=== PATIENT | male | born 1980 | race Caucasian/White ===

== ENCOUNTER 2016-12-18 16:46 | Emergency (ER) | payer SELFPAY ==
[~2016-12-18] VITALS: Ht 170.2 cm; Wt 102.5 kg
[~2016-12-18 16:46] MED LIST: CLON0.1T PO; FURO40TA PO; LISI-515 PO; NEUR400C PO; SPIR25TA PO
[2016-12-18 17:14] VITALS: BP 129/82; PULSE 82; RESP 18; TEMP 98.6; O2SAT 100
[2016-12-18 19:54] LABS: POTASSIUM 4.3 MEQ/L (3.5-5.1)
[2016-12-18 19:58] LABS: BICARBONATE 29.6 MEQ/L (21.0-32.0)
[2016-12-18] MEDS ORDERED: SPIR25TA PO (20:09)
[2016-12-18] MEDS ORDERED: FURO40TA PO (20:09)
[2016-12-18] MEDS ORDERED: VIST50CA PO (20:09)
[2016-12-18] MEDS ORDERED: NEUR400C PO (20:09)
[2016-12-18] MEDS ORDERED: LISI-515 PO (20:09)
--- NOTE | 2016-12-18 20:10 | PD ---
HPI Chief Complaint: Medication Refill Request Time Seen by Provider: 17:00 Travel History International Travel<30 days: No Contact w/Intl Traveler<30days: No Traveled to known affect area: No History of Present Illness HPI Patient is a 36-year-old male who presents emergency Department for a medication refill. Patient has no new complaints today. He states that his patient assistance lapsed and he is unable to follow-up with his primary doctor. PFSH Past Medical History Hx Anticoagulant Therapy: No Anxiety: Yes Depression: Yes (SInce late teens early 20's) Heart Rhythm Problems: Yes (says he has had "skips" ) Cancer: No Cardiac Catheterization: No Cardiovascular Problems: Yes (HTN) High Cholesterol: Yes Chemotherapy: No Chest Pain: Yes Congestive Heart Failure: No Cirrhosis: Yes Cerebrovascular Accident: No Diabetes: No Diminished Hearing: No Endocrine: No Gastrointestinal Disorders: No GERD: Yes Genitourinary: No Hepatitis: No Hiatal Hernia: No Hypertension: Yes Immune Disorder: No Implanted Vascular Access Dvce: No Musculoskeletal: Yes (FX RIGHT FIBULA, HX FX T3-5) Neurologic: Yes (BLE NEUROPATHY, HX SEIZURES) Psychiatric: Yes (ANXIETY) Reproductive: No Respiratory: Yes Immunizations Current: Yes Migraines: Yes Seizures: Yes (see EMR) Thyroid Disease: No PNEUMOCCOCAL Vaccine (Year): 2 Past Surgical History Abdominal Surgery: No AICD: No Arteriovenous Shunt: No Body Medical Devices: NONE Cardiac Surgery: No Coronary Artery Bypass Graft: No Ear Surgery: No Endocrine Surgery: No Eye Surgery: No Genitourinary Surgery: No Hysterectomy: No Insulin Pump: No Joint Replacement: No Oral Surgery: Yes (T&A) Pacemaker: No Thoracic Surgery: No Tonsillectomy: Yes Other Surgery: Yes Family History Family Myocardial Infarction: Yes (GRAND FATHER AT 49) Social History Alcohol Use: No (quit) Tobacco Use: Yes (1 PPD) Substance Use: No Allergies-Medications (Allergen,Severity, Reaction): Coded Allergies: No Known Allergies (Verified , 12/18/16) Reported Meds & Prescriptions Reported Meds & Active Scripts Active Lisinopril 20 Mg Tab 20 Mg PO DAILY Neurontin (Gabapentin) 400 Mg Cap 400 Mg PO TID Spironolactone 25 Mg Tab 12.5 Mg PO DAILY Furosemide 40 Mg Tab 40 Mg PO DAILY Reported Clonidine (Clonidine HCl) 0.1 Mg Tab 0.1 Mg PO BID Review of Systems Except as stated in HPI: all other systems reviewed are Neg Physical Exam Narrative GENERAL: Well-nourished, well-developed patient. SKIN: Warm and dry. HEAD: Normocephalic. EYES: No scleral icterus. No injection or drainage. NECK: Supple, trachea midline. No JVD or lymphadenopathy. CARDIOVASCULAR: Regular rate and rhythm without murmurs, gallops, or rubs. RESPIRATORY: Breath sounds equal bilaterally. No accessory muscle use. GASTROINTESTINAL: Abdomen soft, non-tender, nondistended. MUSCULOSKELETAL: No cyanosis, or edema. BACK: Nontender without obvious deformity. No CVA tenderness. Data Data Last Documented VS Vital Signs Date Time Temp Pulse Resp B/P Pulse Ox O2 Delivery O2 Flow Rate FiO2 12/18/16 17:14 98.6 82 18 129/82 100 Orders Basic Metabolic Panel (Bmp) (12/18/16 19:21) Labs Laboratory Tests Test 12/18/16 19:30 Sodium Level 142 MEQ/L Potassium Level 4.3 MEQ/L Chloride Level 105 MEQ/L Carbon Dioxide Level 29.6 MEQ/L Anion Gap 7 MEQ/L Blood Urea Nitrogen 14 MG/DL Creatinine 0.95 MG/DL Estimat Glomerular Filtration 90 ML/MIN Rate Random Glucose 82 MG/DL Calcium Level 8.5 MG/DL [facility] Medical Decision Making Medical Screen Exam Complete: Yes Emergency Medical Condition: Yes Interpretation(s) Laboratory Tests Test 12/18/16 19:30 Sodium Level 142 MEQ/L Potassium Level 4.3 MEQ/L Chloride Level 105 MEQ/L Carbon Dioxide Level 29.6 MEQ/L Anion Gap 7 MEQ/L Blood Urea Nitrogen 14 MG/DL Creatinine 0.95 MG/DL Estimat Glomerular Filtration 90 ML/MIN Rate Random Glucose 82 MG/DL Calcium Level 8.5 MG/DL Vital Signs Date Time Temp Pulse Resp B/P Pulse Ox O2 Delivery O2 Flow Rate FiO2 12/18/16 17:14 98.6 82 18 129/82 100 Differential Diagnosis Medication refill versus acute kidney injury versus electrolyte abnormality versus uncontrolled hypertension versus other Narrative Course Patient is a 36-year-old male who presents emergency for medication refill. Patient has no new complaints at this time. Patient presented in October for the same reason. He is attempting to reestablish with Dr. Ram that he is waiting for his patient assistance. BMP ordered to assess kidney function. BMP is unremarkable, patient's medications will be refilled for him at this time. He is encouraged to continue attempting to follow-up with her primary care provider as emergency department is not the appropriate place for medication refills. He verbalized understanding of these instructions, he was encouraged to return to emergency department for any new or worsening symptoms. Patient is stable for discharge. Diagnosis Primary Impression: Encounter for medication refill Referrals: Hyun Ram MD Patient Instructions: General Instructions, Hypertension (DC) Additional Instructions: Follow-up with your primary doctor Medications as directed Return to emergency department for new or worsening symptoms Med/Other Pt SpecificInfo: Prescription(s) given Scripts Hydroxyzine Pamoate (Vistaril)50 Mg Cap50 Mg PO BID PRN (ANXIETY) #60 CAP Ref 0 Prov:Randa Dickerson 12/18/16 Lisinopril 20 Mg Tab20 Mg PO DAILY #30 TAB Ref 0 Prov:Randa Dickerson 12/18/16 Gabapentin (Neurontin)400 Mg Rws830 Mg PO TID #90 CAP Ref 0 Prov:Randa Dickerson 12/18/16 Spironolactone 25 Mg Tab12.5 Mg PO DAILY #30 TAB Ref 0 Prov:Randa Dickerson 12/18/16 Furosemide 40 Mg Tab40 Mg PO DAILY #30 TAB Ref 0 Prov:Randa Dickerson 12/18/16 Disposition: 01 DISCHARGE HOME Condition: Stable Randa Dickerson Dec 18, 2016 20:10
[2016-12-29] MEDS ORDERED: HYDR-3516 PO (15:32)
[2016-12-29] MEDS ORDERED: MISC-226 (15:33)
== END 2016-12-18 20:19 | disposition home or self-care (01) ==
LOC: PHED 16:46 → PHEFT 20:19
DX: Z76.0 Encounter for issue of repeat prescription (principal); I10 Essential (primary) hypertension; G62.9 Polyneuropathy, unspecified; E78.00 Pure hypercholesterolemia, unspecified
CPT/HCPCS: 80048; 99282

== ENCOUNTER → 2016-12-29 | Day surgery (SDC) | payer SELFPAY ==
[~2016-12-29] VITALS: Ht 170.2 cm; Wt 101.4 kg
[~2016-12-29] MED LIST changes: +*MEPERIDINE 25 MG INJ VIAL PERIprocedural Use ONLY ONE; +*morphine SULFATE 8 MG/ML PERIprocedure ONLY ONE; +ACETAMINOPHEN 1000 MG/100 ML VIAL IV ONE; +ACETAMINOPHEN/HYDROcodone 325 MG/5 MG TAB PO PRN; +CHLORHEXIDINE GLUCONATE 4% SOLN 120 ML BTL TOP SCH; +DO NOT ADM ANY ANTICOAGULANT DRUGS XX PRN; +FAMOTIDINE 20 MG/2 ML VIAL ONE; +FUROSEMIDE 40 MG TAB PO SCH; +GABAPENTIN 400 MG CAP PO SCH; +GENTAMICIN SULFATE 80 MG/2 ML VIAL ONE; +HYDR-3516 PO; +INSULIN HUMAN REGULAR 1,000 UNITS/10 ML VIAL SQ PRN; +LACTATED RINGER'S 1000 ML IV SCH; +LISINOPRIL 20 MG TAB PO SCH; +METOPROLOL TARTRATE 25 MG TAB PO PRN; +MIDAZOLAM HCL 2 MG/2 ML VIAL ONE; +MISC-226; +MORPHINE SULFATE 4 MG/ML INJ IV PUSH PRN; +MORPHINE SULFATE 4 MG/ML INJ ONE; +ONDANSETRON HCL 4 MG/2 ML VIAL IV PRN; +ONDANSETRON HCL 4 MG/2 ML VIAL IV PUSH ONE; +PILL SPLITTER OTHER PRN; +POVIDONE IODINE 7.5% SCRUB 118 ML BOTTLE TOP SCH; +PROPOFOL 200 MG/20 ML AMP IV ONE; +SODIUM CHLORID 0.9% 500 ML IV SCH; +SODIUM CHLORIDE 0.9% FLUSH 5 ML FLUSH IVF PRN; +SODIUM CHLORIDE 0.9% FLUSH 5 ML FLUSH IVF SCH; +SPIRONOLACTONE 25 MG TAB PO SCH; +TRANEXAMIC ACID 1 GM POST-OP IV SCH; +TRANEXAMIC ACID 1 GM PRIOR TO PROCEDURE IV SCH; +VANCOMYCIN 1000 MG/NS 250 ML (for <70 kg) IV SCH; +VIST50CA PO; +ceFAZolin 2 GM PREMIX 50 ML IV SCH; +fentaNYL CITRATE 250 MCG/5 ML AMP ONE
[2016-12-29 11:57] VITALS: BP 100/81; PULSE 95; RESP 16; TEMP 98.2; O2SAT 95
[2016-12-29 12:23] LABS: AUTOMATED NEUTROPHIL # 5.2 TH/MM3 (1.8-7.7); BASOPHIL # 0.1 TH/MM3 (0-0.2); BASOPHIL % 0.7 % (0.0-2.0); EOSINOPHIL # 0.5 TH/MM3 (0-0.4); EOSINOPHIL % 7.5 % (0.0-4.0); HEMATOCRIT 42.7 % (39.0-51.0); LYMPH % 13.7 % (9.0-44.0); MEAN CORPUSCULAR HEMOGLOBIN 30.3 PG (27.0-34.0); MEAN CORPUSCULAR HGB CONC 35.2 % (32.0-36.0); MONO % 6.9 % (0.0-8.0); NEUT % 71.2 % (16.0-70.0); PLATELET COUNT 95 TH/MM3 (150-450); RED BLOOD COUNT 4.97 MIL/MM3 (4.50-5.90); RED CELL DISTRIBUTION WIDTH 13.2 % (11.6-17.2); WHITE BLOOD COUNT 7.3 TH/MM3 (4.0-11.0)
[2016-12-29 12:27] LABS: HEMO FLAGS AUTO DIFF
[2016-12-29 13:11] LABS: PLATELET ESTIMATE SMEAR LOW (NORMAL); PLATELET MORPHOLOGY NORMAL (NORMAL); SCAN/DIFF AUTO DIFF CONFIRMED
--- NOTE | 2016-12-29 16:23 | HHI.PR ---
Immediate Post Op Note Procedure Date: Dec 29, 2016 Pre Op Diagnosis: (1) Mechanical complic of internal orthopedic device, implant or graft Post Op Diagnosis: (1) Mechanical complic of internal orthopedic device, implant or graft Surgeon: Jamison Ny Slot Router(s): none Procedure: arthrotomy left ankle with removal of broken hardware Complications: none Estimated blood loss: 25 cc Anesthesia: General Drains: None Tourniquet time (min at mmHg) 20min at 250 Patient to: PACU Patient Condition: Good Implant/Devices: SEE IMPLANT LOG (if applicable) Date/Time of Procedure: SEE SURGICAL CARE RECORD Jamison Ny MD Dec 29, 2016 16:23
--- NOTE | 2016-12-29 16:31 | RADRPT ---
EXAM DATE/TIME: 12/29/2016 16:09 [facility] COMPARISON: TIBIA/FIBULA RIGHT (AP/LAT), September 23, 2016, 22:27. ANKLE RIGHT COMPLETE ([id number]), September 11 16, 9:46. INDICATIONS : Hardware removal of the right ankle. MEDICAL HISTORY : None. SURGICAL HISTORY : ORIF right ankle. ENCOUNTER: Initial ACUITY: 1 day PAIN SCORE: Non-responsive. LOCATION: Right Ankle. FINDINGS: Matrix views reveal the sideplate along the distal fibula to be removed as well as the most caudad in ferior screw. Small residual parts of the screw noted proximally within the tibia. CONCLUSION: Postsurgical removal of hardware as described Taiwo Brown MD on December 29, 2016 at 16:29 Board Certified Radiologist. This report was verified electronically.
[2016-12-29 18:10] VITALS: BP 122/84; PULSE 75; RESP 16; TEMP 97.8; O2SAT 100
--- NOTE | 2017-01-02 07:07 | MP ---
cc: JB LINN DATE OF SURGERY 12/29/2016 PREOPERATIVE DIAGNOSIS Painful hardware right ankle PROCEDURE Arthrotomy right ankle, removal of syndesmotic screw. SURGEON Dr. Linn ANESTHESIA General endotracheal ESTIMATED BLOOD LOSS Less than 25 cc. TOURNIQUET TIME 20 minutes COMPLICATIONS None known INDICATIONS Mr. Fields is approximately three months out from repair of a syndesmotic ankle injury. He has been walking on his ankle without the cast for a long period of time and was developing some increasing pain. X-rays revealed intact syndesmotic screws although the possibility of fracturing was present. The patient presents today for arthrotomy and removal of syndesmotic screws. OPERATION The patient was taken to the operating room on 12/29/2016 and appropriately identified as Malachi Fields and the right lower extremity was identified as the operative site. The patient was given two grams of IV Ancef, one gram IV vancomycin and the right lower extremity was prepped and draped in the usual sterile fashion. The leg was elevated and tourniquet was raised to 250 mmHg. A 3 cm incision was made along the course of the distal fibula. Sharp dissection was carried through skin, subcutaneous tissue and then the deep incision was made. The plate was removed and the screws were removed. Two syndesmotic screws were broken, the more proximal two. The distal screw was still intact. The plate was removed. The wounds were thoroughly irrigated. The ankle was taken through a full range of motion with stress testing and the syndesmosis was found to be intact. The two broken screws were maintained within the tibia and therefore no attempt was made to remove the broken fragments. The wounds were thoroughly irrigated. Hemostasis was achieved. The deep layer was closed with 3-0 Vicryl followed by 3-0 nylon. Sterile dressing was applied. Sponge, needle counts were correct x2. The patient was taken to the recovery room in stable condition. MD RILEY Nunez/CHRIS /4:32 PM /7:04 AM
== END | disposition home or self-care (01) ==
LOC: HSDC 11:16
PROVIDERS: ATTEND Orthopaedic Surgery
DX: T84.84XA Pain due to internal orthopedic prosthetic devices, implants and grafts, initial encounter (principal); I10 Essential (primary) hypertension
CPT/HCPCS: 01480; 20680; 73600; 76000; 85025; 86850; 86900; 86901; E0113; J0690; J1580; J2175; J2250; J2270; J2405; J3010; J3370; J7050; J7120; J0131

== ENCOUNTER 2017-03-25 16:34 | Emergency (ER) | payer OTHER ==
[~2017-03-25 16:34] MED LIST changes: -*MEPERIDINE 25 MG INJ VIAL PERIprocedural Use ONLY ONE; -*morphine SULFATE 8 MG/ML PERIprocedure ONLY ONE; -ACETAMINOPHEN 1000 MG/100 ML VIAL IV ONE; -ACETAMINOPHEN/HYDROcodone 325 MG/5 MG TAB PO PRN; -CHLORHEXIDINE GLUCONATE 4% SOLN 120 ML BTL TOP SCH; -CLON0.1T PO; -DO NOT ADM ANY ANTICOAGULANT DRUGS XX PRN; -FAMOTIDINE 20 MG/2 ML VIAL ONE; -FUROSEMIDE 40 MG TAB PO SCH; -GABAPENTIN 400 MG CAP PO SCH; -GENTAMICIN SULFATE 80 MG/2 ML VIAL ONE; -INSULIN HUMAN REGULAR 1,000 UNITS/10 ML VIAL SQ PRN; -LACTATED RINGER'S 1000 ML IV SCH; -LISINOPRIL 20 MG TAB PO SCH; -METOPROLOL TARTRATE 25 MG TAB PO PRN; -MIDAZOLAM HCL 2 MG/2 ML VIAL ONE; -MORPHINE SULFATE 4 MG/ML INJ IV PUSH PRN; -MORPHINE SULFATE 4 MG/ML INJ ONE; -ONDANSETRON HCL 4 MG/2 ML VIAL IV PRN; -ONDANSETRON HCL 4 MG/2 ML VIAL IV PUSH ONE; -PILL SPLITTER OTHER PRN; -POVIDONE IODINE 7.5% SCRUB 118 ML BOTTLE TOP SCH; -PROPOFOL 200 MG/20 ML AMP IV ONE; -SODIUM CHLORID 0.9% 500 ML IV SCH; -SODIUM CHLORIDE 0.9% FLUSH 5 ML FLUSH IVF PRN; -SODIUM CHLORIDE 0.9% FLUSH 5 ML FLUSH IVF SCH; -SPIRONOLACTONE 25 MG TAB PO SCH; -TRANEXAMIC ACID 1 GM POST-OP IV SCH; -TRANEXAMIC ACID 1 GM PRIOR TO PROCEDURE IV SCH; -VANCOMYCIN 1000 MG/NS 250 ML (for <70 kg) IV SCH; -ceFAZolin 2 GM PREMIX 50 ML IV SCH; -fentaNYL CITRATE 250 MCG/5 ML AMP ONE
[2017-03-25 16:53] VITALS: BP 138/75; PULSE 95; RESP 18; TEMP 98.1; O2SAT 96
[2017-03-25 18:10] VITALS: BP 162/92; PULSE 96; RESP 18; TEMP 98.1; O2SAT 97
[2017-03-25 19:02] LABS: BLOOD, URINE NEG (NEG); COMMENT (UR) CULT NOT INDICATED; CULTURE IF INDICATED CULT NOT INDICATED; GLUCOSE,URINE NEG (NEG); HYALINE CAST, URINE 11 /lpf (RARE); KETONE, URINE NEG (NEG); NITRITE,URINE NEG (NEG); URINE COLOR YELLOW (YELLW/STRAW)
[2017-03-25 19:24] LABS: MEAN CELL VOLUME 90.1 FL (80.0-100.0); RED BLOOD COUNT 4.55 MIL/MM3 (4.50-5.90); WHITE BLOOD COUNT 7.1 TH/MM3 (4.0-11.0)
[2017-03-25 19:25] LABS: AUTOMATED NEUTROPHIL # 5.1 TH/MM3 (1.8-7.7); BASOPHIL % 0.6 % (0.0-2.0); EOSINOPHIL # 0.2 TH/MM3 (0-0.4); EOSINOPHIL % 2.2 % (0.0-4.0); HEMO FLAGS DIFF FINAL; LYMPH % 18.7 % (9.0-44.0); LYMPHOCYTE # 1.3 TH/MM3 (1.0-4.8); MEAN CORPUSCULAR HGB CONC 35.6 % (32.0-36.0); MONO % 6.3 % (0.0-8.0); NEUT % 72.2 % (16.0-70.0); PLATELET COUNT 141 TH/MM3 (150-450); RED CELL DISTRIBUTION WIDTH 15.3 % (11.6-17.2)
[2017-03-25 19:48] LABS: ANION GAP 10 MEQ/L (5-15); AST (GOT) 73 U/L (15-37); BICARBONATE 27.9 MEQ/L (21.0-32.0); BLOOD UREA NITROGEN 14 MG/DL (7-18); CHLORIDE 93 MEQ/L (98-107); GLOMERULAR FILTRATION RATE 103 ML/MIN (>89); POTASSIUM 3.8 MEQ/L (3.5-5.1); SODIUM (NA) 131 MEQ/L (136-145)
[2017-03-25 19:49] LABS: AMPHETAMINE, URINE NEG (NEG); BARBITURATES, URINE NEG (NEG); COCAINE, URINE NEG (NEG)
[2017-03-25 19:51] LABS: ALKALINE PHOSPHATASE 99 U/L (45-117); ALT (GPT) 75 U/L (12-78); TOTAL BILIRUBIN ADULT 0.9 MG/DL (0.2-1.0)
--- NOTE | 2017-03-25 20:01 | PD ---
HPI Chief Complaint: Psychiatric Symptoms Time Seen by Provider: 20:01 Travel History International Travel<30 days: No Contact w/Intl Traveler<30days: No Traveled to known affect area: No History of Present Illness HPI 36-year-old male with a history of hypertension presents to the emergency department under Dee act for psychiatric evaluation. The patient reportedly has a history of alcoholism and states that he had "a mental breakdown" earlier while he was at an ice cream store and he thinks that a bystander called police. States that when the officer arrived he did tell him that he is been struggling with his alcoholism and would like to stop drinking. The patient states that he has a history of withdrawal seizures and becomes very anxious and to stop drinking alcohol. States that his last drink was 5 hours ago. States he drinks a half gallon of vodka daily and has had 2 pints today. Admits to occasional marijuana use. Denies any other drug use. Complaints of feeling pressure in his neck and head constantly for several months. States he thinks it is related to his anxiety. Denies any chest pain, shortness of breath , abdominal pain, nausea, vomiting, dizziness, vision changes. Denies suicidal or homicidal ideations. Denies any attempts to harm himself. No other complaints. PFSH Past Medical History Hx Anticoagulant Therapy: No Anxiety: Yes Depression: Yes (SInce late teens early 20's) Heart Rhythm Problems: Yes (says he has had "skips" ) Cancer: No Cardiac Catheterization: No Cardiovascular Problems: Yes (HTN) High Cholesterol: Yes Chemotherapy: No Chest Pain: Yes Congestive Heart Failure: No Cirrhosis: Yes Cerebrovascular Accident: No Diabetes: No Diminished Hearing: No Endocrine: No Gastrointestinal Disorders: No GERD: Yes Genitourinary: No Hepatitis: No Hiatal Hernia: No Hypertension: Yes Immune Disorder: No Implanted Vascular Access Dvce: No Musculoskeletal: Yes (FX RIGHT FIBULA, HX FX T3-5) Neurologic: Yes (BLE NEUROPATHY, HX SEIZURES) Psychiatric: Yes (ANXIETY) Reproductive: No Respiratory: Yes Immunizations Current: Yes Migraines: Yes Seizures: Yes (see EMR) Thyroid Disease: No PNEUMOCCOCAL Vaccine (Year): 2 Past Surgical History Abdominal Surgery: No AICD: No Arteriovenous Shunt: No Body Medical Devices: NONE Cardiac Surgery: No Coronary Artery Bypass Graft: No Ear Surgery: No Endocrine Surgery: No Eye Surgery: No Genitourinary Surgery: No Hysterectomy: No Insulin Pump: No Joint Replacement: No Oral Surgery: Yes (T&A) Pacemaker: No Thoracic Surgery: No Tonsillectomy: Yes Other Surgery: Yes Family History Family Myocardial Infarction: Yes (GRAND FATHER AT 49) Social History Alcohol Use: Yes (STATES LAST DRINK WAS THIS AM 03/25/17) Tobacco Use: Yes (1 PPD) Substance Use: No Allergies-Medications (Allergen,Severity, Reaction): Coded Allergies: No Known Allergies (Verified , 12/29/16) Reported Meds & Prescriptions Reported Meds & Active Scripts Active Quick-Fit Crutches (Device) 1 Mis Mis 1 Ea .ROUTE DIRECTED Hydrocodone-Acetaminophen 5-325 mg Tab 1 Tab PO Q4H PRN Vistaril (Hydroxyzine Pamoate) 50 Mg Cap 50 Mg PO BID PRN Lisinopril 20 Mg Tab 20 Mg PO DAILY Neurontin (Gabapentin) 400 Mg Cap 400 Mg PO TID Spironolactone 25 Mg Tab 12.5 Mg PO DAILY Furosemide 40 Mg Tab 40 Mg PO DAILY Review of Systems Except as stated in HPI: all other systems reviewed are Neg Physical Exam Narrative GENERAL: Well-nourished and well-developed male patient in no acute distress who is nontoxic appearing. SKIN: Warm and dry. HEAD: Normocephalic and atraumatic. EYES: No injection, drainage, or hyphema noted. PERRLA. EOMI. ENT: No nasal drainage noted. Oropharynx is clear. NECK: Supple and the trachea is midline. CARDIOVASCULAR: Regular rate and rhythm. RESPIRATORY: Breath sounds are equal bilaterally with no accessory muscle use, wheezing, rhonchi, or crackles. GASTROINTESTINAL: Abdomen is soft, non-tender, and nondistended. MUSCULOSKELETAL: No obvious deformities, swelling, cyanosis, or ecchymosis is present throughout the upper and lower extremities. Patient has full range of motion without any signs of neurovascular compromise. NEUROLOGICAL: Awake, alert, and oriented. Normal speech and gait. Cranial nerves are grossly intact. Data Data Last Documented VS Vital Signs Date Time Temp Pulse Resp B/P Pulse Ox O2 Delivery O2 Flow Rate FiO2 03/25/17 21:05 85 18 149/84 95 Room Air 03/25/17 18:10 98.1 Orders Complete Blood Count With Diff (03/25/17 18:30) Comprehensive Metabolic Panel (03/25/17 18:30) Urinalysis - C+S If Indicated (03/25/17 18:30) Psych Screen (03/25/17 18:30) Drug Screen, Random Urine (03/25/17 18:30) Salicylates (Aspirin) (03/25/17 18:30) Alcohol (Ethanol) (03/25/17 19:07) Diet Regular Basic (03/25/17 Dinner) Alcohol Withdrawal Asmt-Ciwa ONCE (03/25/17 20:48) Flumazenil Inj (Romazicon Inj) (03/25/17 21:00) Lorazepam (Ativan) (03/25/17 21:00) Lorazepam Inj (Ativan Inj) (03/25/17 21:00) Lorazepam (Ativan) (03/25/17 21:00) Lorazepam Inj (Ativan Inj) (03/25/17 21:00) Lorazepam Inj (Ativan Inj) (03/25/17 21:00) Lorazepam Inj (Ativan Inj) (03/25/17 21:00) Labs Laboratory Tests Test 03/25/17 03/25/17 18:33 19:07 Urine Color YELLOW Urine Turbidity CLEAR Urine pH 6.0 Urine Specific [place] 1.016 Urine Protein 30 mg/dL Urine Glucose (UA) NEG mg/dL Urine Ketones NEG mg/dL Urine Occult Blood NEG Urine Nitrite NEG Urine Bilirubin NEG Urine Urobilinogen LESS THAN 2.0 MG/DL Urine Leukocyte Esterase NEG Urine WBC 2 /hpf Urine Hyaline Casts 11 /lpf Microscopic Urinalysis Comment CULT NOT INDICATED Urine Opiates Screen NEG Urine Barbiturates Screen NEG Urine Amphetamines Screen NEG Urine Benzodiazepines Screen NEG Urine Cocaine Screen NEG Urine Cannabinoids Screen NEG White Blood Count 7.1 TH/MM3 Red Blood Count 4.55 MIL/MM3 Hemoglobin 14.6 GM/DL Hematocrit 41.0 % Mean Corpuscular Volume 90.1 FL Mean Corpuscular Hemoglobin 32.0 PG Mean Corpuscular Hemoglobin 35.6 % Concent Red Cell Distribution Width 15.3 % Platelet Count 141 TH/MM3 Mean Platelet Volume 7.7 FL Neutrophils (%) (Auto) 72.2 % Lymphocytes (%) (Auto) 18.7 % Monocytes (%) (Auto) 6.3 % Eosinophils (%) (Auto) 2.2 % Basophils (%) (Auto) 0.6 % Neutrophils # (Auto) 5.1 TH/MM3 Lymphocytes # (Auto) 1.3 TH/MM3 Monocytes # (Auto) 0.4 TH/MM3 Eosinophils # (Auto) 0.2 TH/MM3 Basophils # (Auto) 0.0 TH/MM3 CBC Comment DIFF FINAL Differential Comment Sodium Level 131 MEQ/L Potassium Level 3.8 MEQ/L Chloride Level 93 MEQ/L Carbon Dioxide Level 27.9 MEQ/L Anion Gap 10 MEQ/L Blood Urea Nitrogen 14 MG/DL Creatinine 0.84 MG/DL Estimat Glomerular Filtration 103 ML/MIN Rate Random Glucose 98 MG/DL Calcium Level 8.5 MG/DL Total Bilirubin 0.9 MG/DL Aspartate Amino Transf 73 U/L (AST/SGOT) Alanine Aminotransferase 75 U/L (ALT/SGPT) Alkaline Phosphatase 99 U/L Total Protein 8.0 GM/DL Albumin 4.5 GM/DL Salicylates Level LESS THAN 1.7 MG/DL Ethyl Alcohol Level 290 MG/DL MDM Medical Decision Making Medical Screen Exam Complete: Yes Emergency Medical Condition: Yes Differential Diagnosis Differential: Depression versus adjustment reaction versus anxiety versus PTSD versus psychosis NOS versus mood disorder NOS versus substance induced mood disorder versus ODD versus adjustment reaction versus schizophrenia versus bipolar disorder versus schizoaffective versus electrolyte abnormality Narrative Course Patient presents under a Dee act. Physical examination and vital signs are essentially unremarkable. Patient has no medical complaints to report. Psych screen has been ordered. CBC is unremarkable, CMP is unremarkable. Urine tox is negative. EtOH is 290. The patient is medically cleared for psychiatric evaluation and disposition. [facility] protocol is initiated. Diagnosis Primary Impression: Substance induced mood disorder Kellen Farris Mar 25, 2017 20:01
[2017-03-25] MEDS ORDERED: FLUMAZENIL 0.5 MG/5 ML VIAL IV PUSH PRN (21:00)
[2017-03-25] MEDS ORDERED: LORazepam 2 MG/ML VIAL IV PUSH PRN ×4 (21:00)
[2017-03-25] MEDS ORDERED: LORazepam 1 MG TAB PO PRN (21:00)
[2017-03-25 21:05] VITALS: BP 149/84; PULSE 85; RESP 18; O2SAT 95
[2017-03-25] MEDS: LORazepam 2 MG TAB PO PRN (22:08)
[2017-03-26 02:06] VITALS: BP 154/81; PULSE 90; RESP 18; O2SAT 99
[2017-03-26] MEDS: LORazepam 2 MG TAB PO PRN ×4 (04:00→19:35)
[2017-03-26 06:00] VITALS: BP 119/68; PULSE 114; RESP 16; O2SAT 96
[2017-03-26] MEDS: THIAMINE HCL 100 MG TAB PO SCH (09:00)
[2017-03-26] MEDS: FOLIC ACID 1 MG TAB PO SCH (09:00)
[2017-03-26 10:02] VITALS: PULSE 96; RESP 17; TEMP 97.6; O2SAT 97
--- NOTE | 2017-03-26 10:43 | MB ---
cc: BETY BURK DATE OF CONSULTATION 03/26/2017 PHYSICIAN REQUESTING CONSULTATION Emergency department REASON FOR CONSULTATION Dee ACT HISTORY OF PRESENT ILLNESS Mr. Moya is a 36-year-old male with a history of alcohol dependence who presents under a Dee ACT from [place] [employer] alleging that the patient is suffering from depression and anxiety and abuses alcohol and needs detox. Reviewing our electronic medical record, I see that the patient was admitted in July of last year under Dr. Ricks. The patient seen and examined. Chart reviewed. Case discussed with nurse in the J pod. There has been no evidence of any suicidality or homicidality while under observation in the J pod. On my evaluation this morning, the patient reports that he has come into the hospital for detox. He feels that his work performance is slipping and he feels physically sick on a daily basis as a consequence of his alcohol use. He reports that he drinks a half a gallon of vodka daily and his longest sober time is on the order of hours to days. He endorses a history of withdrawal seizures in 2014 and 2011. The patient presently denies any suicidal or homicidal ideation, intent or plan. He is somewhat dysphoric and understandably upset by his circumstance but I can elicit no depressive or hypomanic/manic symptoms. Denies audiovisual hallucinations, no delusional beliefs. Remainder of the psychiatric ROS is negative. PAST PSYCHIATRIC HISTORY The patient reports a history of depression. He is not currently under the care of a psychiatrist. He was admitted most recently under Dr. Ricks as I said. He denies a history of suicide attempts. FAMILY HISTORY The patient is unsure of his family psychiatric history. CHEMICAL DEPENDENCY HISTORY Alcohol use is as above. The patient denies any other substances of abuse. Alcohol level on presentation here was 290. SOCIAL HISTORY The patient reports that he lives with a roommate. He is single and has a daughter. He has two associates degrees. 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 He denies any history. He does endorse a history of DUIs and domestic battery charges. No active legal issues. He denies any access to guns or firearms. He is a mosque. PAST MEDICAL HISTORY Includes a history of neuropathy in his feet. See electronic medical record. REVIEW OF SYSTEMS The patient does report some anxiety and general disease in the setting of alcohol withdrawal. No reported headache, vision or hearing changes, chest pain, shortness of breath, bowel or bladder issues. No other physical complaints. PHYSICAL EXAMINATION VITAL SIGNS: Temperature 98.1, pulse 114, respirations 16, blood pressure 119/68, pulse oximetry 96% on room air. Physical examination completed by the ED provider. On my examination today, the patient appears to be well-nourished and well-developed and in mild acute physical distress secondary to withdrawal. I can detect no hand tremor, no diaphoresis, no mydriasis, no tongue fasciculations, no other signs of alcohol withdrawal, although the patient did receive 2 mg of Ativan this morning prior to my evaluation. LABORATORY Reviewed, CBC reveals mild thrombocytopenia at 141. CMP reveals mild hyponatremia at 131 and mildly elevated AST at 73. Toxicology is negative. Alcohol level 290. Urinalysis reveals 30 protein. MENTAL STATUS EXAM The patient is in hospital gown. He is fairly well-groomed and maintaining basic hygiene. He is awake and alert and oriented x3. No abnormal motor movements noted. No evidence of delirium. Memory is intact on clinical exam. Speech is within normal limits for rate, tone and volume. Language and fund of knowledge seem average. Mood is somewhat dysphoric secondary to circumstance affect is blunted. Thought process linear. No loosening of associations. No evident delusions. No audiovisual hallucinations. Denies suicidal or homicidal ideation, intent or plan. Insight and judgment are fair. ASSESSMENT/PLAN 1. Alcohol dependence, F10.20 This is a 36-year-old male with psychiatric history as detailed above who presents under a Dee Act. The patient wants detox from alcohol. He denies any suicidal or homicidal ideation at this time. I can detect no unstable mood, anxiety or psychotic disorder in this patient at this time. He appears to be attending to his basic needs. The patient's primary issues seem to be alcohol related. The patient therefore does not meet Dee Act criteria after weighing the acute, chronic, and protective factors. I have lifted the Dee Act. The patient is requesting detox services, and I have asked the nursing staff to refer the patient to ACT, as well as to the [facility] as a possible maximilian case for detoxification services there. The ED provider has placed the patient under CIWA scale with Ativan for management of withdrawal. I will add thiamine, folate, seizure and fall precautions. Continue to monitor in the J pod with plan for transfer to detox if a bed is available. Thank you very much for this consultation. Bety Burk DC/CHRIS /8:00 AM /10:25 AM GERA
[2017-03-26 22:06] VITALS: BP 134/84; PULSE 89; RESP 18; O2SAT 97
[2017-03-27 02:26] VITALS: BP 149/90; PULSE 94; RESP 18; O2SAT 99
[2017-03-27 06:22] VITALS: BP 143/87; PULSE 94; RESP 17; O2SAT 97
[2017-03-27] MEDS: FOLIC ACID 1 MG TAB PO SCH (09:00)
[2017-03-27] MEDS: THIAMINE HCL 100 MG TAB PO SCH (09:00)
== END 2017-03-27 10:18 | disposition home or self-care (01) ==
LOC: NEDAMB 16:34 → NEPJ 03-27 10:18
DX: F10.24 Alcohol dependence with alcohol-induced mood disorder (principal); F10.129 Alcohol abuse with intoxication, unspecified; Y90.8 Blood alcohol level of 240 mg/100 ml or more; I10 Essential (primary) hypertension; E78.00 Pure hypercholesterolemia, unspecified; K74.60 Unspecified cirrhosis of liver; K21.9 Gastro-esophageal reflux disease without esophagitis; G62.9 Polyneuropathy, unspecified; F17.210 Nicotine dependence, cigarettes, uncomplicated
CPT/HCPCS: 80053; 80307; 81001; 85025; 99283

== ENCOUNTER 2017-08-17 14:12 | Emergency (ER) | payer SELFPAY ==
[2017-08-17 14:21] VITALS: BP 177/102; PULSE 100; RESP 20; TEMP 98.3; O2SAT 96
[2017-08-17] MEDS ORDERED: LISINOPRIL 20 MG TAB PO ONE (14:45)
[2017-08-17] MEDS ORDERED: PROPARACAINE HCL 0.5% OPHT SOLN 15 ML BTL LEFT EYE ONE (14:45)
--- NOTE | 2017-08-17 15:11 | PD ---
HPI Chief Complaint: Eye Problems/Injury Time Seen by Provider: 14:26 Travel History International Travel<30 days: No Contact w/Intl Traveler<30days: No Traveled to known affect area: No History of Present Illness HPI 36yo M with PMH of HTN presents to the ED with multiple complaints. States that he was fishing 3 days ago and it was windy and he felt like something may have flown into his left eye. He has been irrigating it but still feels like something is there. Feels irritated. No eye discharge. Pt also sliced his left hand on a broken wine bottle at 9pm last night. No shattered glass. It had stopped bleeding and he would not have come for that but since he is here for his eye, might as well get it checked. Also has ran out of lisinopril 20mg for 3 weeks. Denies any fever, chest pain, sob, n/v, abdominal pain, focal weakness or numbness. Tetanus up to date. PFSH Past Medical History Hx Anticoagulant Therapy: No Anxiety: Yes Depression: Yes (SInce late teens early 20's) Heart Rhythm Problems: Yes (says he has had "skips" ) Cancer: No Cardiac Catheterization: No Cardiovascular Problems: Yes (HTN) High Cholesterol: Yes Chemotherapy: No Chest Pain: Yes Congestive Heart Failure: No Cirrhosis: Yes Cerebrovascular Accident: No Diabetes: No Diminished Hearing: No Endocrine: No Gastrointestinal Disorders: No GERD: Yes Genitourinary: No Hepatitis: No Hiatal Hernia: No Hypertension: Yes Immune Disorder: No Implanted Vascular Access Dvce: No Musculoskeletal: Yes (FX RIGHT FIBULA, HX FX T3-5) Neurologic: Yes (BLE NEUROPATHY, HX SEIZURES) Psychiatric: Yes (ANXIETY) Reproductive: No Respiratory: Yes Immunizations Current: Yes Migraines: Yes Seizures: Yes (see EMR) Thyroid Disease: No Tetanus Vaccination: < 5 Years Influenza Vaccination: Yes PNEUMOCCOCAL Vaccine (Year): 2 Past Surgical History Abdominal Surgery: No AICD: No Arteriovenous Shunt: No Body Medical Devices: NONE Cardiac Surgery: No Coronary Artery Bypass Graft: No Ear Surgery: No Endocrine Surgery: No Eye Surgery: No Genitourinary Surgery: No Hysterectomy: No Insulin Pump: No Joint Replacement: No Oral Surgery: Yes (T&A) Pacemaker: No Thoracic Surgery: No Tonsillectomy: Yes Other Surgery: Yes Family History Family Myocardial Infarction: Yes (GRAND FATHER AT 49) Social History Alcohol Use: Yes (SOCIAL) Tobacco Use: Yes (/ PPD) Substance Use: No (1/2 GALLON VODKA DAILY (FORMER)) Allergies-Medications (Allergen,Severity, Reaction): Coded Allergies: No Known Allergies (Verified , 08/17/17) Reported Meds & Prescriptions Reported Meds & Active Scripts Active Hydrocodone-Acetaminophen 5-325 mg Tab 1 Tab PO Q4H PRN Lisinopril 20 Mg Tab 20 Mg PO DAILY Neurontin (Gabapentin) 400 Mg Cap 400 Mg PO TID Spironolactone 25 Mg Tab 12.5 Mg PO DAILY Furosemide 40 Mg Tab 40 Mg PO DAILY Review of Systems Except as stated in HPI: all other systems reviewed are Neg Physical Exam Narrative GENERAL: 36yo M not in distress. SKIN: Focused skin assessment warm/dry. HEAD: Atraumatic. Normocephalic. EYES: Left eye: Injected conjunctiva. No foreign body visualized. EOMI. No discharge. Pupil reactive to light. Wood's lamp: Small flourescein uptake in left eye at 1 o'clock. ENT: No nasal bleeding or discharge. Mucous membranes pink and moist. NECK: Trachea midline. No JVD. CARDIOVASCULAR: Regular rate and rhythm. No murmur appreciated. RESPIRATORY: No accessory muscle use. Clear to auscultation. Breath sounds equal bilaterally. GASTROINTESTINAL: Abdomen soft, non-tender, nondistended. MUSCULOSKELETAL: Left hand: superficial laceration in hypothenar eminence 1cm. Small 0.5cm laceration in lateral 5th MCP that is already closed on its own. FROM in all digits. Radial pulse 2+. Sensation intact. NEUROLOGICAL: Awake and alert. No obvious cranial nerve deficits. Motor grossly within normal limits. Normal speech. PSYCHIATRIC: Appropriate mood and affect; insight and judgment normal. Data Data Last Documented VS Vital Signs Date Time Temp Pulse Resp B/P (MAP) Pulse Ox O2 Delivery O2 Flow Rate FiO2 08/17/17 14:21 98.3 100 20 177/102 (127) 96 Orders Orders Proparacaine 0.5% Opth Soln (Alcaine 0.5 (08/17/17 14:45) Lisinopril (Prinivil) (08/17/17 14:45) MDM Medical Decision Making Medical Screen Exam Complete: Yes Emergency Medical Condition: Yes Differential Diagnosis Corneal abrasion vs. foreign body in eye vs. conjunctivitis vs. superficial laceration vs. uncontrolled HTN Narrative Course 36yo M with multiple complaints. Pt is mainly here for left eye irritation and foreign body sensation for 3 days. Denies any welding or any eye trauma. Think sand may have gotten in and has been rubbing it. Visual acuity is 20/30 in left eye. Pt has very small flourescein up take in left upper eye around 1 o 'clock and that is where he feels the foreign body sensation. Pt also had a laceration from 18 hours ago in his hand and it is superficial and already started healing. I approximated the wound edge with steri strip after irrigation. Blood pressure also elevated so pt ran out of his blood pressure medication 3 weeks ago so gave pt lisinopril 20mg. Return precautions given. Procedures Procedure Narrative LACERATION LOCATION: Left hypothenar eminence LENGTH: 1cm NUMBER OF STITCHES/LAMBERT: Steri strips. REPAIR: The wound was copiously irrigated and explored without evidence of foreign body, tendon injury or neurovascular injury. The wound was closed using Steri strips. This was a single layer repair. The patient was advised to keep the dressing clean and dry. Patient tolerated the procedure well. Diagnosis Primary Impression: Corneal abrasion Qualified Codes: S05.02XA - Injury of conjunctiva and corneal abrasion without foreign body, left eye, initial encounter Additional Impression: Laceration of hand Qualified Codes: S61.412A - Laceration without foreign body of left hand, initial encounter Departure Forms: Tests/Procedures Additional Instructions: Please follow up with forensic audit expert if symptoms do not improve. [facility] blood pressure and wound check. Return to the ED if symptoms worsen. Med/Other Pt SpecificInfo: Prescription(s) given Scripts Lisinopril (Lisinopril) 20 Mg Tab 20 MG PO DAILY, #30 TAB 0 Refills Prov: Marion Triplett DO 08/17/17 Erythromycin Opth Oint (Erythromycin Opth Oint) 5 Mg/Gm Oint 1 APPLIC LEFT EYE BID for Infection for 5 Days, #1 TUBE 0 Refills Prov: Marion Triplett DO 08/17/17 Disposition: 01 DISCHARGE HOME Condition: Stable Marion Triplett DO Aug 17, 2017 15:11
[2017-08-17] MEDS ORDERED: ERYTOIN10 LEFT EYE (15:49)
[2017-08-17] MEDS ORDERED: LISI-515 PO (15:50)
[2017-08-17 16:02] VITALS: BP 140/104
== END 2017-08-17 16:03 | disposition home or self-care (01) ==
LOC: PHED 14:12
DX: S05.02XA Injury of conjunctiva and corneal abrasion without foreign body, left eye, initial encounter (principal); S61.412A Laceration without foreign body of left hand, initial encounter; W25.XXXA Contact with sharp glass, initial encounter; I10 Essential (primary) hypertension; E78.00 Pure hypercholesterolemia, unspecified; K21.9 Gastro-esophageal reflux disease without esophagitis; F17.210 Nicotine dependence, cigarettes, uncomplicated
CPT/HCPCS: 99284

== ENCOUNTER 2018-01-19 18:41 | Inpatient (IN) | payer SELFPAY ==
[~2018-01-19 18:41] MED LIST changes: +ERYTOIN10 LEFT EYE; -MISC-226
[2018-01-19 19:02] VITALS: BP 146/81; PULSE 119; RESP 18; TEMP 97.8; O2SAT 99
[2018-01-19 19:47] VITALS: BP 150/98; PULSE 73; RESP 16; O2SAT 96
[2018-01-19 19:51] VITALS: BP 153/115; PULSE 103; RESP 20; TEMP 98.6; O2SAT 99
--- NOTE | 2018-01-19 19:54 | PD ---
HPI Chief Complaint: Seizure Time Seen by Provider: 19:47 Travel History International Travel<30 days: No Contact w/Intl Traveler<30days: No Traveled to known affect area: No History of Present Illness HPI The patient is a 37 year old male who presents to the [facility] emergency department with a history of generalized clonic tonic seizure activity witnessed by his roommate prior to arrival. It is unknown exactly how long it lasted. The patient was reportedly postictal after it occurred. The patient also was noted to bite his tongue. The patient denies having any loss of bowel or bladder control. He reports that he believes that he last had a seizure a ago. The patient reports that prior to that his last seizure was in 2014. The patient reports that his seizures are related to alcohol withdrawal. He reports that he did consume less alcohol today as he has not been feeling well. He is interested and detoxification. The patient reports having nausea with vomiting 2 today. He denies having any diarrhea. He reports feeling anxious with chest tightness and a sensation of shortness of breath. He reports that he has been out of his blood pressure medicine for the last 2 weeks. He also reports being out of his Ativan for anxiety for the last 2 weeks. The patient denies using any other drugs. The patient reports that he was previously followed by Dr. Dorman for his primary care, however he denies having a primary care physician currently. The patient reports that he normally drinks 2 pints of vodka per day, however today he only had a half a pint of vodka. Otherwise on review of systems, the patient denies having any known recent fevers, cough, congestion, neck pain, abdominal pain,diarrhea, urinary symptoms, or other neurologic symptoms. [facility] Past Medical History Narrative Medical The patient's past medical history is significant for bilateral lower extremity neuropathy, alcohol abuse, anxiety disorder, hypertension, hyperlipidemia, acid reflux Hx Anticoagulant Therapy: No Anxiety: Yes Depression: Yes (SInce late teens early 20's) Heart Rhythm Problems: Yes (says he has had "skips" ) Cancer: No Cardiac Catheterization: No Cardiovascular Problems: Yes (HTN) High Cholesterol: Yes Chemotherapy: No Chest Pain: Yes Congestive Heart Failure: No Cirrhosis: Yes Cerebrovascular Accident: No Diabetes: No Diminished Hearing: No Endocrine: No Gastrointestinal Disorders: No GERD: Yes Genitourinary: No Hepatitis: No Hiatal Hernia: No Hypertension: Yes Immune Disorder: No Implanted Vascular Access Dvce: No Musculoskeletal: Yes (FX RIGHT FIBULA, HX FX T3-5) Neurologic: Yes (BLE NEUROPATHY, HX SEIZURES) Psychiatric: Yes (ANXIETY) Reproductive: No Respiratory: Yes Immunizations Current: Yes Migraines: Yes Seizures: Yes (see EMR) Thyroid Disease: No PNEUMOCCOCAL Vaccine (Year): 2 Past Surgical History Narrative Surgical The patient's past surgical history is significant for tonsil and adenoidectomy , right ankle ORIF Abdominal Surgery: No AICD: No Arteriovenous Shunt: No Body Medical Devices: NONE Cardiac Surgery: No Coronary Artery Bypass Graft: No Ear Surgery: No Endocrine Surgery: No Eye Surgery: No Genitourinary Surgery: No Hysterectomy: No Insulin Pump: No Joint Replacement: No Oral Surgery: Yes (T&A) Pacemaker: No Thoracic Surgery: No Tonsillectomy: Yes Other Surgery: Yes Family History Family Myocardial Infarction: Yes (GRAND FATHER AT 49) Social History Alcohol Use: Yes (2 pints of vodka daily) Tobacco Use: Yes (One half pack per day) Substance Use: No Allergies-Medications (Allergen,Severity, Reaction): Coded Allergies: No Known Allergies (Verified Allergy, Unknown, 01/19/18) Reported Meds & Prescriptions Reported Meds & Active Scripts Active Lisinopril 20 Mg Tab 20 Mg PO DAILY Vistaril (Hydroxyzine Pamoate) 50 Mg Cap 50 Mg PO BID PRN Review of Systems Except as stated in HPI: all other systems reviewed are Neg General / Constitutional: No: Fever Eyes: No: Visual changes HENT: No: Headaches Cardiovascular: No: Chest Pain or Discomfort Respiratory: No: Shortness of Breath Gastrointestinal: No: Abdominal Pain Genitourinary: No: Dysuria Musculoskeletal: No: Pain Skin: No Rash Neurologic: Positive: Weakness (Generalized weakness), Tremor, Change in Mentation, Seizures, No: Focal Abnormalities, Slurred Speech, Sensory Disturbance Psychiatric: Positive: Anxiety, Mood Disorder, Substance Abuse, No: Depression , Suicidal Ideations, Homicidal Ideation Endocrine: No: Polydipsia Hematologic/Lymphatic: No: Easy Bruising Physical Exam Narrative General: The patient is a well-developed well-nourished fmale in no acute distress. Head and Neck exam: Head is normocephalic atraumatic. Eyes: EOMI, pupils are equal round and reactive to light. Nose: Midline septum with pink mucous membranes Mouth: Dentition unremarkable. Moist mucus membranes. Posterior oropharynx is not erythematous. No tonsillar hypertrophy. Uvula midline. Airway patent. On examination of the patient's left side of the tongue the patient has a tongue contusion noted. Neck: No palpable lymphadenopathy. No nuchal rigidity. No thyromegaly. Cardiovascular: Sinus tachycardia in the 1 teens to low 100s without murmurs, gallops, or rubs. No pulse deficit to the extremities and simultaneous auscultation and palpation of his radial artery. Lungs: Clear to auscultation bilaterally. No wheezes, rhonchi, or rales. Abdomen: Soft, without tenderness to palpation in all 4 quadrants of the abdomen. No guarding, rebound, or rigidity. Normal bowel sounds are audible. No tenderness on palpation of McBurney's point. Negative Slaughter sign. Extremities: No clubbing, cyanosis, or edema. 2+ pulses in all 4 extremities. No calf tenderness on palpation. Back: No costovertebral angle tenderness to palpation. Neurologic Exam: Grossly nonfocal. The patient is slightly tremulous on examination. Skin Exam: No rash noted. Intact skin that is warm and dry. Data Data Last Documented VS Vital Signs Date Time Temp Pulse Resp B/P (MAP) Pulse Ox O2 Delivery O2 Flow Rate FiO2 01/19/18 19:51 98.6 103 20 153/115 (128) 99 Nasal Cannula 4.00 Orders Orders Electrocardiogram (01/19/18 20:03) Complete Blood Count With Diff (01/19/18 20:03) Comprehensive Metabolic Panel (01/19/18 20:03) Creatine Kinase (Cpk) (01/19/18 20:03) Ckmb (Isoenzyme) Profile (01/19/18 20:03) Troponin I (01/19/18 20:03) B-Type Natriuretic Peptide (01/19/18 20:03) Prothrombin Time / Inr (Pt) (01/19/18 20:03) Act Partial Throm Time (Ptt) (01/19/18 20:03) Lipase (01/19/18 20:03) Urinalysis - C+S If Indicated (01/19/18 20:03) Magnesium (Mg) (01/19/18 20:03) Thyroid Stimulating Hormone (01/19/18 20:03) Chest, Single Ap (01/19/18 20:03) Ct Brain W/O Iv Contrast(Rout) (01/19/18 20:03) Iv Access Insert/Monitor (01/19/18 20:03) Ecg Monitoring (01/19/18 20:03) Oximetry (01/19/18 20:03) Drug Screen, Random Urine (01/19/18 20:03) Alcohol (Ethanol) (01/19/18 20:03) Sodium Chlor 0.9% 1000 Ml Inj (Ns 1000 M (01/19/18 20:15) Ondansetron Inj (Zofran Inj) (01/19/18 20:15) Thiamine Inj (Thiamine Inj) (01/19/18 20:15) Lorazepam Inj (Ativan Inj) (01/19/18 20:15) CKMB (01/19/18 20:07) CKMB% (01/19/18 20:07) Chlordiazepoxide (Librium) (01/19/18 21:30) Magnesium Sulfate 1 Gm Premix (Magnesium (01/19/18 21:30) Potassium Chloride Eff (K-Lyte Cl Eff) (01/19/18 21:30) Sodium Chlor 0.9% 1000 Ml Inj (Ns 1000 M (01/19/18 22:00) Admit Order (Ed Use Only) (01/19/18 22:13) Labs Laboratory Tests Test 01/19/18 20:07 01/19/18 21:50 White Blood Count 6.4 TH/MM3 Red Blood Count 3.68 MIL/MM3 Hemoglobin 13.4 GM/DL Hematocrit 38.3 % Mean Corpuscular Volume 104.2 FL Mean Corpuscular Hemoglobin 36.4 PG Mean Corpuscular Hemoglobin Concent 35.0 % Red Cell Distribution Width 14.7 % Platelet Count 80 TH/MM3 Mean Platelet Volume 8.0 FL Neutrophils (%) (Auto) 84.1 % Lymphocytes (%) (Auto) 7.4 % Monocytes (%) (Auto) 6.7 % Eosinophils (%) (Auto) 1.3 % Basophils (%) (Auto) 0.5 % Neutrophils # (Auto) 5.4 TH/MM3 Lymphocytes # (Auto) 0.5 TH/MM3 Monocytes # (Auto) 0.4 TH/MM3 Eosinophils # (Auto) 0.1 TH/MM3 Basophils # (Auto) 0.0 TH/MM3 CBC Comment AUTO DIFF Differential Total Cells Counted 100 Neutrophils % (Manual) 66 % Band Neutrophils % 17 % Lymphocytes % 10 % Monocytes % 5 % Eosinophils % 2 % Neutrophils # (Manual) 5.3 TH/MM3 Differential Comment FINAL DIFF MANUAL Platelet Estimate LOW Platelet Morphology Comment NORMAL Prothrombin Time 10.7 SEC Prothromb Time International Ratio 1.1 RATIO Activated Partial Thromboplast Time 23.4 SEC Blood Urea Nitrogen 2 MG/DL Creatinine 0.83 MG/DL Random Glucose 94 MG/DL Total Protein 6.6 GM/DL Albumin 3.4 GM/DL Calcium Level 7.7 MG/DL Magnesium Level 1.1 MG/DL Alkaline Phosphatase 184 U/L Aspartate Amino Transf (AST/SGOT) 159 U/L Alanine Aminotransferase (ALT/SGPT) 58 U/L Total Bilirubin 2.6 MG/DL Sodium Level 136 MEQ/L Potassium Level 3.1 MEQ/L Chloride Level 98 MEQ/L Carbon Dioxide Level 29.7 MEQ/L Anion Gap 8 MEQ/L Estimat Glomerular Filtration Rate 104 ML/MIN Total Creatine Kinase 198 U/L Creatine Kinase MB 2.4 NG/ML Troponin I LESS THAN 0.02 NG/ML B-Type Natriuretic Peptide 10 PG/ML Lipase 103 U/L Thyroid Stimulating Hormone 3rd Gen 4.520 uIU/ML Ethyl Alcohol Level LESS THAN 3 MG/DL Urine Color ORANGE Urine Turbidity CLEAR Urine pH 6.0 Urine Specific [place] 1.023 Urine Protein 100 mg/dL Urine Glucose (UA) NEG mg/dL Urine Ketones TRACE mg/dL Urine Occult Blood NEG Urine Nitrite NEG Urine Bilirubin SMALL Urine Urobilinogen 4.0 MG/DL Urine Leukocyte Esterase NEG Urine RBC 1 /hpf Urine WBC 2 /hpf Urine Hyaline Casts 3 /lpf Urine Mucus MOD /lpf Microscopic Urinalysis Comment CULT NOT INDICATED Urine Opiates Screen NEG Urine Barbiturates Screen NEG Urine Amphetamines Screen NEG Urine Benzodiazepines Screen NEG Urine Cocaine Screen NEG Urine Cannabinoids Screen NEG MDM Medical Decision Making Medical Screen Exam Complete: Yes Emergency Medical Condition: Yes Medical Record Reviewed: Yes Differential Diagnosis Alcohol related withdrawal seizures, versus delirium tremens, versus hypoglycemia, versus electrolyte derangements, versus epilepsy Narrative Course During the course of the patient's emergency department visit, the patient's history, examination, and differential diagnosis were reviewed with the patient. The patient was placed on a site monitor with oximetry and frequent blood pressure monitoring. The patient had IV access obtained and blood work sent for analysis. The patient had an EKG done on arrival that shows a sinus tachycardia heart rate of 102, moderate intraventricular conduction delay with a QRS duration of 113 ms, QTC [address] segment elevation, T waves are inverted in V1, V2. The patient was initially provided thiamine 100 mg IV, normal saline 1 IV fluid bolus, Ativan 1 mg IV. The patient's laboratory studies were reviewed and remarkable for A CMP that reveals a potassium of 3.1 which was supplemented orally, BUN 2, calcium 7.7, magnesium 1.1 which was supplemented IV with magnesium sulfate 1 g, AST 159, total bilirubin is 2.6, alk phos 184, cardiac enzymes within normal limits, BNP 10, lipase 103, TSH is 4.52. PT 10.7, PTT 23.4. White count of 6.4, hemoglobin 13.4, platelets 80 with 84.1 neutrophils, lymphocytes 7.4. Urine drug screen is negative, alcohol level less than 3. Urinalysis shows 100 protein trace ketones small really ribbon, 4 urobilinogen, otherwise unremarkable. Chest x-ray shows no acute cardiopulmonary disease. CT scan of the brain shows senescent changes without acute intracranial abnormality. The patient was given Librium 50 mg p.o. 1. The patient will be admitted to the hospital for an alcohol-related withdrawal syndrome. The patient's results were discussed with the patient, including the plan of care. I explained that further testing and/ or monitoring is indicated based on the patient's history, examination, and/ or laboratory findings. Therefore, I recommended admission for additional evaluation. The patient expressed understanding and was agreeable with this plan. The patient was admitted to the hospital in guarded condition and [facility]. Physician Communication Physician Communication The patient's case including history, pertinent physical examination findings, and laboratory studies were discussed with Dr. Valdovinos. It was agreed that the patient would be admitted to the [facility] service. Diagnosis Primary Impression: Alcohol withdrawal Qualified Codes: F10.239 - Alcohol dependence with withdrawal, unspecified Additional Impression: Seizure Admitting Information Admitting Physician Requests: Admit Mine Pappas MD Jan 19, 2018 19:54
[2018-01-19] MEDS ORDERED: SODIUM CHLOR 0.9% 1000 ML INJ 1,000 ML IV ONE ×2 (20:15→22:00)
[2018-01-19] MEDS ORDERED: ONDANSETRON HCL 4 MG/2 ML VIAL IV ONE (20:15)
[2018-01-19] MEDS ORDERED: LORazepam 2 MG/ML VIAL IV PUSH ONE (20:15)
[2018-01-19] MEDS ORDERED: THIAMINE INJ 100 MG in SODIUM CHLORIDE 0.9% INJ 100 ML IV ONE (20:15)
[2018-01-19 20:34] LABS: AUTOMATED NEUTROPHIL # 5.4 TH/MM3 (1.8-7.7); BASOPHIL % 0.5 % (0.0-2.0); EOSINOPHIL # 0.1 TH/MM3 (0-0.4); EOSINOPHIL % 1.3 % (0.0-4.0); HEMATOCRIT 38.3 % (39.0-51.0); HEMOGLOBIN 13.4 GM/DL (13.0-17.0); LYMPH % 7.4 % (9.0-44.0); LYMPHOCYTE # 0.5 TH/MM3 (1.0-4.8); MEAN CELL VOLUME 104.2 FL (80.0-100.0); MEAN CORPUSCULAR HEMOGLOBIN 36.4 PG (27.0-34.0); MONO % 6.7 % (0.0-8.0); MONOCYTE # 0.4 TH/MM3 (0-0.9); NEUT % 84.1 % (16.0-70.0); PLATELET COUNT 80 TH/MM3 (150-450); RED BLOOD COUNT 3.68 MIL/MM3 (4.50-5.90); RED CELL DISTRIBUTION WIDTH 14.7 % (11.6-17.2); WHITE BLOOD COUNT 6.4 TH/MM3 (4.0-11.0)
--- NOTE | 2018-01-19 20:51 | RADRPT ---
EXAM DATE/TIME: 01/19/2018 20:25 [facility] COMPARISON: CHEST SINGLE AP, July 03, 2015, 23:07. INDICATIONS : Syncope. Patient had a seizure today. MEDICAL HISTORY : Hypertension. Seizures. SURGICAL HISTORY : None. ENCOUNTER: Initial ACUITY: 1 day PAIN SCORE: 0/10 LOCATION: Bilateral chest FINDINGS: A single view of the chest demonstrates the lungs to be symmetrically aerated without evidence of mas s, infiltrate or effusion. The cardiomediastinal contours are unremarkable. Osseous structures are intact. CONCLUSION: 1. No acute cardiopulmonary disease. James Bustos MD on January 19, 2018 at 20:49 Board Certified Radiologist. This report was verified electronically.
[2018-01-19 20:53] LABS: ALBUMIN 3.4 GM/DL (3.4-5.0); ALT (GPT) 58 U/L (12-78); AST (GOT) 159 U/L (15-37); BICARBONATE 29.7 MEQ/L (21.0-32.0); BLOOD UREA NITROGEN 2 MG/DL (7-18); CALCIUM 7.7 MG/DL (8.5-10.1); CHLORIDE 98 MEQ/L (98-107); CREATININE 0.83 MG/DL (0.60-1.30); GLOMERULAR FILTRATION RATE 104 ML/MIN (>89); GLUCOSE,RANDOM 94 MG/DL (74-106); MAGNESIUM 1.1 MG/DL (1.5-2.5); SODIUM (NA) 136 MEQ/L (136-145)
[2018-01-19 21:01] LABS: INTERNATIONAL NORMALIZED RATIO 1.1 RATIO; PROTHROMBIN TIME - PATIENT 10.7 SEC (9.8-11.6)
[2018-01-19 21:02] LABS: ALKALINE PHOSPHATASE 184 U/L (45-117); TOTAL BILIRUBIN ADULT 2.6 MG/DL (0.2-1.0); TOTAL PROTEIN 6.6 GM/DL (6.4-8.2); TROPONIN I LESS THAN 0.02 NG/ML (0.02-0.05)
[2018-01-19 21:20] LABS: BANDS 17 % (0-6); LYMPHOCYTES 10 % (9-44); MONOCYTES 5 % (0-8); NEUTROPHIL # MANUAL DIFF 5.3 TH/MM3 (1.8-7.7); POLYS (SEG NEUTROPHILS) 66 % (16-70)
[2018-01-19] MEDS ORDERED: chlordiazePOXIDE 25 MG CAP PO PRN (21:30)
[2018-01-19] MEDS ORDERED: POTASSIUM CHLORIDE 25 MEQ EFFERVESCENT TAB PO ONE (21:30)
[2018-01-19] MEDS ORDERED: MAGNESIUM SULFATE 1 GM PREMIX 100 ML IV ONE (21:30)
--- NOTE | 2018-01-19 21:57 | RADRPT ---
EXAM DATE/TIME: 01/19/2018 21:11 [facility] COMPARISON: CT BRAIN W/O CONTRAST, July 11, 2011, 18:20. INDICATIONS : Altered mental status post seizure. RADIATION DOSE: 40.02 CTDIvol (mGy) MEDICAL HISTORY : Seizures. Hypertension. SURGICAL HISTORY : None. ENCOUNTER: Initial ACUITY: 1 day PAIN SCALE: 7/10 LOCATION: Bilateral cranial TECHNIQUE: Multiple contiguous axial images were obtained of the head. Using automated exposure control and adj ustment of the mA and/or kV according to patient size, radiation dose was kept as low as reasonably a chievable to obtain optimal diagnostic quality images. DICOM format image data is available electro nically for review and comparison. FINDINGS: CEREBRUM: Moderate diffuse cerebral volume loss. The ventricles are normal for age. No evidence of midline osimn ft, mass lesion, hemorrhage or acute infarction. No extra-axial fluid collections are seen. POSTERIOR FOSSA: The cerebellum and brainstem are intact. The 4th ventricle is midline. The cerebellopontine angle i s unremarkable. EXTRACRANIAL: The visualized portion of the orbits is intact. SKULL: The calvaria is intact. No evidence of skull fracture. CONCLUSION: 1. Senescent changes without acute intracranial abnormality. James Bustos MD on January 19, 2018 at 21:55 Board Certified Radiologist. This report was verified electronically.
[2018-01-19 22:31] LABS: BILIRUBIN, URINE SMALL (NEG); BLOOD, URINE NEG (NEG); GLUCOSE,URINE NEG (NEG); HYALINE CAST, URINE 3 /lpf (RARE); KETONE, URINE TRACE mg/dL (NEG); MUCUS URINE MOD /lpf (OCC); NITRITE,URINE NEG (NEG); URINE LEUKOCYTE ESTERASE NEG (NEG)
[2018-01-19 22:32] LABS: URINE COLOR ORANGE (YELLW/STRAW)
[2018-01-19] MEDS: SODIUM CHLOR 0.9% 1000 ML INJ 1,000 ML IV SCH (23:19)
[2018-01-19] MEDS ORDERED: SODIUM CHLORIDE 0.9% FLUSH 10 ML FLUSH IV FLUSH PRN (23:30)
[2018-01-19] MEDS ORDERED: LORazepam 2 MG/ML VIAL IV PUSH PRN ×4 (23:30)
[2018-01-19] MEDS ORDERED: LORazepam 2 MG TAB PO PRN (23:30)
[2018-01-19] MEDS ORDERED: FLUMAZENIL 0.5 MG/5 ML VIAL IV PUSH PRN (23:30)
[2018-01-20] VITALS (12 sets, daily range): BP systolic 145–162; BP diastolic 85–113; PULSE 88–103; RESP 18–20; TEMP 97.7–98.5; O2SAT 95–99
[2018-01-20] MEDS ORDERED: MAGNESIUM SULFATE 1 GM PREMIX 100 ML IV ONE (00:15)
[2018-01-20] MEDS ORDERED: POTASSIUM CHLORIDE 20 MEQ CONTROLLED RELEASE TAB PO ONE (00:15)
--- NOTE | 2018-01-20 00:16 | HHI.HP ---
[facility] No Primary Care Physician Admission Diagnosis Alcohol withdrawal syndrome Diagnoses: Travel History International Travel<30 Days: No Contact w/Intl Traveler <30 Da: No Traveled to Known Affected Are: No History of Present Illness 37-year-old male with past medical history significant for hypertension and alcohol abuse presents to the emergency department after witnessed seizure. The patient has no memory of the event. He states he usually drinks 2 pints of alcohol daily but today secondary to feeling under the weather had only drank approximately 1/2 pint. He denies any loss of bowel or bladder function. His seizure activity was generalized tonic-clonic witnessed by his roommate prior to his arrival. Duration unknown. The patient reports that prior to today his last seizure was approximately 1 month ago. He denies any associated symptoms such as chest pain, shortness of breath, nausea/vomiting/diarrhea. Review of Systems Except as stated in HPI: all other systems reviewed are Neg Past Family Social History Past Medical History Hypertension Past Surgical History Right ankle Tonsillectomy Reported Medications Reported Meds & Active Scripts Active Lisinopril 20 Mg Tab 20 Mg PO DAILY Vistaril (Hydroxyzine Pamoate) 50 Mg Cap 50 Mg PO BID PRN Allergies: Coded Allergies: No Known Allergies (Verified Allergy, Unknown, 01/19/18) Family History Negative for CAD/DM Social History Smokes approximately half a pack of cigarettes per day. Drinks 2 pints of vodka daily. Positive marijuana. Denies other illicit drugs. Physical Exam Vital Signs Vital Signs Date Time Temp Pulse Resp B/P (MAP) Pulse Ox O2 Delivery O2 Flow Rate FiO2 01/19/18 19:51 98.6 103 20 153/115 (128) 99 Nasal Cannula 4.00 01/19/18 19:51 97 Nasal Cannula 4.00 01/19/18 19:47 73 16 150/98 (115) 96 Nasal Cannula 2.00 01/19/18 19:02 97.8 119 18 146/81 (102) 99 Physical Exam GENERAL: male lying in bed SKIN: No rashes, ecchymoses or lesions. Cool and dry. HEAD: Atraumatic. Normocephalic. No temporal or scalp tenderness. EYES: Pupils equal round and reactive. Extraocular motions intact. No scleral icterus. No injection or drainage. ENT: Nose without bleeding, purulent drainage or septal hematoma. Throat without erythema, tonsillar hypertrophy or exudate. Uvula midline. Airway patent. NECK: Trachea midline. No JVD or lymphadenopathy. Supple, nontender, no meningeal signs. CARDIOVASCULAR: Regular rate and rhythm without murmurs, gallops, or rubs. RESPIRATORY: Clear to auscultation. Breath sounds equal bilaterally. No wheezes , rales, or rhonchi. GASTROINTESTINAL: Abdomen soft, non-tender, nondistended. No hepato-splenomegaly , or palpable masses. No guarding. MUSCULOSKELETAL: Extremities without clubbing, cyanosis, or edema. No joint tenderness, effusion, or edema noted. No calf tenderness. NEUROLOGICAL: Awake and alert. Cranial nerves II through XII intact. Motor and sensory grossly within normal limits. Normal speech. Laboratory Laboratory Tests Test 01/19/18 20:07 01/19/18 21:50 White Blood Count 6.4 Red Blood Count 3.68 Hemoglobin 13.4 Hematocrit 38.3 Mean Corpuscular Volume 104.2 Mean Corpuscular Hemoglobin 36.4 Mean Corpuscular Hemoglobin Concent 35.0 Red Cell Distribution Width 14.7 Platelet Count 80 Mean Platelet Volume 8.0 Neutrophils (%) (Auto) 84.1 Lymphocytes (%) (Auto) 7.4 Monocytes (%) (Auto) 6.7 Eosinophils (%) (Auto) 1.3 Basophils (%) (Auto) 0.5 Neutrophils # (Auto) 5.4 Lymphocytes # (Auto) 0.5 Monocytes # (Auto) 0.4 Eosinophils # (Auto) 0.1 Basophils # (Auto) 0.0 CBC Comment AUTO DIFF Differential Total Cells Counted 100 Neutrophils % (Manual) 66 Band Neutrophils % 17 Lymphocytes % 10 Monocytes % 5 Eosinophils % 2 Neutrophils # (Manual) 5.3 Differential Comment FINAL DIFF MANUAL Platelet Estimate LOW Platelet Morphology Comment NORMAL Prothrombin Time 10.7 Prothromb Time International Ratio 1.1 Activated Partial Thromboplast Time 23.4 Blood Urea Nitrogen 2 Creatinine 0.83 Random Glucose 94 Total Protein 6.6 Albumin 3.4 Calcium Level 7.7 Magnesium Level 1.1 Alkaline Phosphatase 184 Aspartate Amino Transf (AST/SGOT) 159 Alanine Aminotransferase (ALT/SGPT) 58 Total Bilirubin 2.6 Sodium Level 136 Potassium Level 3.1 Chloride Level 98 Carbon Dioxide Level 29.7 Anion Gap 8 Estimat Glomerular Filtration Rate 104 Total Creatine Kinase 198 Creatine Kinase MB 2.4 Troponin I LESS THAN 0.02 B-Type Natriuretic Peptide 10 Lipase 103 Thyroid Stimulating Hormone 3rd Gen 4.520 Ethyl Alcohol Level LESS THAN 3 Urine Color ORANGE Urine Turbidity CLEAR Urine pH 6.0 Urine Specific [place] 1.023 Urine Protein 100 Urine Glucose (UA) NEG Urine Ketones TRACE Urine Occult Blood NEG Urine Nitrite NEG Urine Bilirubin SMALL Urine Urobilinogen 4.0 Urine Leukocyte Esterase NEG Urine RBC 1 Urine WBC 2 Urine Hyaline Casts 3 Urine Mucus MOD Microscopic Urinalysis Comment CULT NOT INDICATED Urine Opiates Screen NEG Urine Barbiturates Screen NEG Urine Amphetamines Screen NEG Urine Benzodiazepines Screen NEG Urine Cocaine Screen NEG Urine Cannabinoids Screen NEG Result Diagram: 01/19/18200601/19/182006 Caprini VTE Risk Assessment Caprini VTE Risk Assessment: No/Low Risk (score <= 1) Caprini Risk Assessment Model Point Value = 1 Point Value = 2 Point Value = 3 Point Value = 5 Age 41-60 Minor surgery BMI > 25 kg/m2 Swollen legs Varicose veins or History of unexplained or recurrent spontaneous Oral contraceptives or hormone replacement Sepsis (< 1 month) Serious lung disease, including pneumonia (< 1 month) Abnormal pulmonary function Acute myocardial infarction Congestive heart failure (< 1 month) History of inflammatory bowel disease Medical patient at bed rest Age 61-74 Arthroscopic surgery Major open surgery (> 45 min) Laparoscopic surgery (> 45 min) Malignancy Confined to bed (> 72 hours) Immobilizing plaster cast Central venous access Age >= 75 History of VTE Family history of VTE Factor V Leiden Prothrombin [id number] Lupus anticoagulant Anticardiolipin antibodies Elevated serum homocysteine Heparin-induced thrombocytopenia Other congenital or acquired thrombophilia Stroke (< 1 month) Elective arthroplasty Hip, pelvis, or leg fracture Acute spinal cord injury (< 1 month) Prophylaxis Regimen Total Risk Factor Score Risk Level Prophylaxis Regimen 0-1 Low Early ambulation 2 Moderate Order ONE of the following: *Sequential Compression Device (SCD) *Heparin 5000 units SQ BID 3-4 Higher Order ONE of the following medications: *Heparin 5000 units SQ TID *Enoxaparin/Lovenox 40 mg SQ daily (WT < 150 kg, CrCl > 30 mL/min) *Enoxaparin/Lovenox 30 mg SQ daily (WT < 150 kg, CrCl > 10-29 mL/min) *Enoxaparin/Lovenox 30 mg SQ BID (WT < 150 kg, CrCl > 30 mL/min) AND/OR *Sequential Compression Device (SCD) 5 or more Highest Order ONE of the following medications: *Heparin 5000 units SQ TID (Preferred with Epidurals) *Enoxaparin/Lovenox 40 mg SQ daily (WT < 150 kg, CrCl > 30 mL/min) *Enoxaparin/Lovenox 30 mg SQ daily (WT < 150 kg, CrCl > 10-29 mL/min) *Enoxaparin/Lovenox 30 mg SQ BID (WT < 150 kg, CrCl > 30 mL/min) AND *Sequential Compression Device (SCD) Assessment and Plan Assessment and Plan Assessment/plan: 1. Seizure Likely secondary to alcohol withdrawal Patient with history of seizures previously with decreased alcohol intake Status post Ativan and Librium 1 CIWA protocol 2. Alcohol abuse Thiamine/folate/multivitamin CIWA as above Monitor for signs of withdrawal 3. Electrolyte abnormalities Patient with hypomagnesemia and hypokalemia Status post IV magnesium and by mouth potassium Follow BMP FEN Regular diet Flatulence: As above Physician Certification 2 Midnight Certification Type: Admission for Inpatient Services Order for Inpatient Services The services are ordered in accordance with Medicare regulations or non- Medicare payer requirements, as applicable. In the case of services not specified as inpatient-only, they are appropriately provided as inpatient services in accordance with the 2-midnight benchmark. Estimated LOS (days): 2 2 days is the estimated time the patient will need to remain in the hospital, assuming treatment plan goals are met and no additional complications. Post-Hospital Plan: Not yet determined Mayi Valdovinos MD Jan 20, 2018 00:16
[2018-01-20] MEDS: LORazepam 1 MG TAB PO PRN ×5 (01:26→20:43)
--- NOTE | 2018-01-20 08:01 | EKG ---
Date Performed: 01/19/2018 Time Performed: 19:54:13 PTAGE: 37 years EKG: SINUS TACHYCARDIA MODERATE INTRAVENTRICULAR CONDUCTION DELAY NONSPECIFIC ST & T-WAVE ABNORM ALITY ABNORMAL RHYTHM ECG PREVIOUS TRACING : 09/23/2016 16.13 DOCTOR: Esau Lamas Interpretating Date/Time 01/20/2018 07:59:50
[2018-01-20] MEDS: THIAMINE HCL 100 MG TAB PO SCH (08:30)
[2018-01-20] MEDS: LISINOPRIL 20 MG TAB PO SCH (08:30)
[2018-01-20] MEDS: MULTIVITAMINS/MINERALS THERAPEUTIC TAB PO SCH (08:30)
[2018-01-20] MEDS: FOLIC ACID 1 MG TAB PO SCH (08:30)
[2018-01-20] MEDS: SODIUM CHLORIDE 0.9% FLUSH 10 ML FLUSH IV FLUSH SCH ×2 (08:31→21:00)
[2018-01-20] MEDS: SODIUM CHLOR 0.9% 1000 ML INJ 1,000 ML IV SCH ×2 (08:32→15:31)
[2018-01-20 09:18] LABS: AUTOMATED NEUTROPHIL # 2.7 TH/MM3 (1.8-7.7); BASOPHIL % 0.6 % (0.0-2.0); EOSINOPHIL # 0.1 TH/MM3 (0-0.4); EOSINOPHIL % 2.8 % (0.0-4.0); HEMATOCRIT 35.2 % (39.0-51.0); HEMOGLOBIN 12.3 GM/DL (13.0-17.0); LYMPH % 12.2 % (9.0-44.0); LYMPHOCYTE # 0.4 TH/MM3 (1.0-4.8); MEAN CELL VOLUME 104.4 FL (80.0-100.0); MEAN CORPUSCULAR HEMOGLOBIN 36.5 PG (27.0-34.0); MEAN PLATELET VOLUME 7.8 FL (7.0-11.0); MONO % 7.8 % (0.0-8.0); MONOCYTE # 0.3 TH/MM3 (0-0.9); NEUT % 76.6 % (16.0-70.0); PLATELET COUNT 61 TH/MM3 (150-450); RED BLOOD COUNT 3.38 MIL/MM3 (4.50-5.90); RED CELL DISTRIBUTION WIDTH 14.3 % (11.6-17.2); WHITE BLOOD COUNT 3.5 TH/MM3 (4.0-11.0)
[2018-01-20 09:48] LABS: ALT (GPT) 51 U/L (12-78); AST (GOT) 162 U/L (15-37); BICARBONATE 27.9 MEQ/L (21.0-32.0); BLOOD UREA NITROGEN 2 MG/DL (7-18); CALCIUM 7.6 MG/DL (8.5-10.1); CHLORIDE 104 MEQ/L (98-107); CREATININE 0.52 MG/DL (0.60-1.30); GLOMERULAR FILTRATION RATE 179 ML/MIN (>89); GLUCOSE,RANDOM 80 MG/DL (74-106); SODIUM (NA) 139 MEQ/L (136-145)
[2018-01-20 09:51] LABS: ALKALINE PHOSPHATASE 174 U/L (45-117); TOTAL BILIRUBIN ADULT 3.3 MG/DL (0.2-1.0); TOTAL PROTEIN 5.9 GM/DL (6.4-8.2)
[2018-01-20 10:06] LABS: BANDS 18 % (0-6); CORRECTED NUCLEATED RBC 1 /100 WBC (0-0); LYMPHOCYTES 13 % (9-44); MONOCYTES 3 % (0-8); NEUTROPHIL # MANUAL DIFF 2.9 TH/MM3 (1.8-7.7); NUCLEATED RED BLOOD CELL 1 (0-0); POLYS (SEG NEUTROPHILS) 64 % (16-70)
[2018-01-21] MEDS: LORazepam 1 MG TAB PO PRN ×2 (00:59→08:31)
[2018-01-21 01:21] VITALS: BP 153/99; PULSE 92; RESP 18; TEMP 98.3; O2SAT 96
[2018-01-21] MEDS: SODIUM CHLOR 0.9% 1000 ML INJ 1,000 ML IV SCH (05:19)
[2018-01-21 05:23] VITALS: BP 153/105; PULSE 87; RESP 18; TEMP 98; O2SAT 96
[2018-01-21 07:08] LABS: AUTOMATED NEUTROPHIL # 3.4 TH/MM3 (1.8-7.7); BASOPHIL % 0.8 % (0.0-2.0); EOSINOPHIL # 0.1 TH/MM3 (0-0.4); EOSINOPHIL % 2.6 % (0.0-4.0); HEMATOCRIT 35.7 % (39.0-51.0); HEMOGLOBIN 12.6 GM/DL (13.0-17.0); LYMPH % 12.6 % (9.0-44.0); LYMPHOCYTE # 0.6 TH/MM3 (1.0-4.8); MEAN CELL VOLUME 103.3 FL (80.0-100.0); MEAN CORPUSCULAR HEMOGLOBIN 36.5 PG (27.0-34.0); MEAN CORPUSCULAR HGB CONC 35.3 % (32.0-36.0); MEAN PLATELET VOLUME 8.5 FL (7.0-11.0); MONO % 7.1 % (0.0-8.0); MONOCYTE # 0.3 TH/MM3 (0-0.9); NEUT % 76.9 % (16.0-70.0); PLATELET COUNT 54 TH/MM3 (150-450); RED BLOOD COUNT 3.45 MIL/MM3 (4.50-5.90); WHITE BLOOD COUNT 4.4 TH/MM3 (4.0-11.0)
[2018-01-21 07:30] LABS: ALBUMIN 3.1 GM/DL (3.4-5.0); AST (GOT) 120 U/L (15-37); BICARBONATE 26.1 MEQ/L (21.0-32.0); BLOOD UREA NITROGEN 3 MG/DL (7-18); CHLORIDE 102 MEQ/L (98-107); CREATININE 0.52 MG/DL (0.60-1.30); GLOMERULAR FILTRATION RATE 179 ML/MIN (>89); GLUCOSE,RANDOM 84 MG/DL (74-106); SODIUM (NA) 137 MEQ/L (136-145)
[2018-01-21 07:31] LABS: ALT (GPT) 48 U/L (12-78)
[2018-01-21 07:33] LABS: ALKALINE PHOSPHATASE 184 U/L (45-117); TOTAL BILIRUBIN ADULT 2.7 MG/DL (0.2-1.0); TOTAL PROTEIN 6.1 GM/DL (6.4-8.2)
[2018-01-21 08:00] VITALS: BP 159/110; PULSE 104; RESP 20; TEMP 98.1; O2SAT 94
[2018-01-21 08:06] VITALS: O2SAT 94
[2018-01-21] MEDS: SODIUM CHLORIDE 0.9% FLUSH 10 ML FLUSH IV FLUSH SCH (08:31)
[2018-01-21] MEDS: FOLIC ACID 1 MG TAB PO SCH (08:31)
[2018-01-21] MEDS: LISINOPRIL 20 MG TAB PO SCH (08:31)
[2018-01-21] MEDS: THIAMINE HCL 100 MG TAB PO SCH (08:31)
[2018-01-21] MEDS: MULTIVITAMINS/MINERALS THERAPEUTIC TAB PO SCH (08:31)
[2018-01-21 08:56] VITALS: PULSE 100
[2018-01-21] MEDS ORDERED: THIA100 PO (10:12)
[2018-01-21] MEDS ORDERED: LORA-392 PO ×2 (10:12→11:08)
[2018-01-21] MEDS ORDERED: THERM PO (10:12)
[2018-01-21] MEDS ORDERED: FOLI1TAB6 PO (10:12)
--- NOTE | 2018-01-21 10:12 | HHI.DS ---
Discharge Summary Admission Date Jan 19, 2018 at 22:16 Discharge Date: Jan 21, 2018 Admitting Diagnosis Alcohol withdrawal syndrome (1) Alcohol abuse, in remission ICD Code: F10.10 - Nondependent alcohol abuse, in remission Status: Acute (2) Hypertension ICD Code: I10 - Essential (primary) hypertension Status: Chronic (3) Alcohol use disorder ICD Code: F10.99 - Alcohol use, unspecified with unspecified alcohol-induced disorder Status: Chronic Procedures none Brief History - From Admission 37-year-old male with past medical history significant for hypertension and alcohol abuse presents to the emergency department after witnessed seizure. The patient has no memory of the event. He states he usually drinks 2 pints of alcohol daily but today secondary to feeling under the weather had only drank approximately 1/2 pint. He denies any loss of bowel or bladder function. His seizure activity was generalized tonic-clonic witnessed by his roommate prior to his arrival. Duration unknown. The patient reports that prior to today his last seizure was approximately 1 month ago. He denies any associated symptoms such as chest pain, shortness of breath, nausea/vomiting/diarrhea. CBC/BMP: 01/21/18 0605 01/21/18 0605 Significant Findings Laboratory Tests Test 01/19/18 20:07 01/19/18 21:50 01/20/18 08:28 01/21/18 06:05 Red Blood Count 3.68 MIL/MM3 (4.50-5.90) 3.38 MIL/MM3 (4.50-5.90) 3.45 MIL/MM3 (4.50-5.90) Hematocrit 38.3 % (39.0-51.0) 35.2 % (39.0-51.0) 35.7 % (39.0-51.0) Mean Corpuscular Volume 104.2 FL (80.0-100.0) 104.4 FL (80.0-100.0) 103.3 FL (80.0-100.0) Mean Corpuscular Hemoglobin 36.4 PG (27.0-34.0) 36.5 PG (27.0-34.0) 36.5 PG (27.0-34.0) Platelet Count 80 TH/MM3 (150-450) 61 TH/MM3 (150-450) 54 TH/MM3 (150-450) Neutrophils (%) (Auto) 84.1 % (16.0-70.0) 76.6 % (16.0-70.0) 76.9 % (16.0-70.0) Lymphocytes (%) (Auto) 7.4 % (9.0-44.0) Lymphocytes # (Auto) 0.5 TH/MM3 (1.0-4.8) 0.4 TH/MM3 (1.0-4.8) 0.6 TH/MM3 (1.0-4.8) Band Neutrophils % 17 % (0-6) 18 % (0-6) Platelet Estimate LOW (NORMAL) LOW (NORMAL) LOW (NORMAL) Activated Partial Thromboplast Time 23.4 SEC (24.3-30.1) Blood Urea Nitrogen 2 MG/DL (7-18) 2 MG/DL (7-18) 3 MG/DL (7-18) Calcium Level 7.7 MG/DL (8.5-10.1) 7.6 MG/DL (8.5-10.1) 8.0 MG/DL (8.5-10.1) Magnesium Level 1.1 MG/DL (1.5-2.5) Alkaline Phosphatase 184 U/L (45-117) 174 U/L (45-117) 184 U/L (45-117) Aspartate Amino Transf (AST/SGOT) 159 U/L (15-37) 162 U/L (15-37) 120 U/L (15-37) Total Bilirubin 2.6 MG/DL (0.2-1.0) 3.3 MG/DL (0.2-1.0) 2.7 MG/DL (0.2-1.0) Potassium Level 3.1 MEQ/L (3.5-5.1) Troponin I LESS THAN 0.02 NG/ML Thyroid Stimulating Hormone 3rd Gen 4.520 uIU/ML (0.358-3.740) Urine Color ORANGE (YELLW/STRAW) Urine Protein 100 mg/dL (NEG-TRACE) Urine Ketones TRACE mg/dL (NEG) Urine Bilirubin SMALL (NEG) Urine Urobilinogen 4.0 MG/DL (LESS THAN Urine Mucus MOD /lpf (OCC) White Blood Count 3.5 TH/MM3 (4.0-11.0) Hemoglobin 12.3 GM/DL (13.0-17.0) 12.6 GM/DL (13.0-17.0) Nucleated Red Blood Cells 1 /100 WBC (0-0) Creatinine 0.52 MG/DL (0.60-1.30) 0.52 MG/DL (0.60-1.30) Total Protein 5.9 GM/DL (6.4-8.2) 6.1 GM/DL (6.4-8.2) Albumin 3.0 GM/DL (3.4-5.0) 3.1 GM/DL (3.4-5.0) Imaging Last Impressions Head CT 01/19/182002 Signed Impressions: Service Date/Time: Friday, January 19, 2018 21:11 - CONCLUSION: 1. Senescent changes without acute intracranial abnormality. James Bustos MD Chest X-Ray 01/19/182002 Signed Impressions: Service Date/Time: Friday, January 19, 2018 20:25 - CONCLUSION: 1. No acute cardiopulmonary disease. James Bustos MD PE at Discharge GENERAL: male lying in bed SKIN: No rashes, ecchymoses or lesions. Cool and dry. HEAD: Atraumatic. Normocephalic. No temporal or scalp tenderness. CARDIOVASCULAR: Regular rate and rhythm without murmurs, gallops, or rubs. RESPIRATORY: Clear to auscultation. Breath sounds equal bilaterally. No wheezes , rales, or rhonchi. GASTROINTESTINAL: Abdomen soft, non-tender, nondistended. No hepato-splenomegaly , or palpable masses. No guarding. MUSCULOSKELETAL: Extremities without clubbing, cyanosis, or edema. No joint tenderness, effusion, or edema noted. No calf tenderness. NEUROLOGICAL: Awake and alert. Cranial nerves II through XII intact. Motor and sensory grossly within normal limits. Normal speech. Pt update on day of discharge no tremors, no seizures. Patient is in the chair, he is ambulating in the room without any problems. He feels better. He is able to eat without problems, diarrhea or constipation. Electrolytes that were normal. Denies any chest pain or shortness of breath. Says he also needs medications for blood pressure at discharge is out of his medications. Withdrawal symptoms. Follow-up outpatient with AA. Follow-up with PCP as outpatient Hospital Course 37-year-old male with past medical history significant for hypertension and alcohol abuse presents to the emergency department after witnessed seizure. The patient has no memory of the event. He states he usually drinks 2 pints of alcohol daily but today secondary to feeling under the weather had only drank approximately 1/2 pint. He denies any loss of bowel or bladder function. His seizure activity was generalized tonic-clonic witnessed by his roommate prior to his arrival. Seizure, likely secondary to alcohol withdrawal. Patient with history of seizures previously with decreased alcohol intake Received Ativan and Librium, placed on CIWA protocol. No seizures or tremors overnight. Patient says ativan helps a lot. Says he will followup as op with AA and pCP. Patient with Alcohol abuse, on Thiamine/folate/multivitamin. Replace electrolytes. Eating without n/v/d/c. Counselled at length regarding EtOH use. Patient was discharged in stable condition to followup as OP with PCP and consultants. Pt Condition on Discharge: Stable Discharge Disposition: Discharge Home Discharge Time: > 30 minutes Discharge Instructions DIET: Follow Instructions for: Heart Healthy Diet Activities you can perform: Regular-No Restrictions Activities to Avoid: Driving Follow up Referrals: PCP Follow-up - 2-3 Days PCP Follow-up New Medications: Lorazepam (Ativan) 0.5 Mg Tab 0.5 MG PO Q8H PRN for ANXIETY AND/OR AGITATION, #30 TAB 0 Refills Folic Acid (Folic Acid) 1 Mg Tablet 1 MG PO DAILY for Nutritional Supplement, #30 TAB Multiple Vitamins W/ Minerals (Thera M Plus) 1 Tab 1 TAB PO DAILY for Nutritional Supplement, #30 TAB Thiamine HCl (Gnp Vitamin B-1) 100 Mg Tab 100 MG PO DAILY for Nutritional Supplement, #30 TAB Continued Medications: Hydroxyzine Pamoate (Vistaril) 50 Mg Cap 50 MG PO BID PRN for ANXIETY, #60 CAP 0 Refills Lisinopril (Lisinopril) 20 Mg Tab 20 MG PO DAILY for Blood Pressure Management, #30 TAB 0 Refills (This prescription has been renewed) Ashly Ernst MD Jan 21, 2018 10:12
[2018-01-21] MEDS ORDERED: LISI-515 PO (11:08)
== END 2018-01-21 12:39 | disposition home or self-care (01) | DRG 897 ==
LOC: NEPC 18:41 → NEDA 22:16 → N05B 01-20 00:39
PROVIDERS: ADMIT Hospitalist; ATTEND Hospitalist
DX: F10.239 Alcohol dependence with withdrawal, unspecified (principal); E83.42 Hypomagnesemia; K74.60 Unspecified cirrhosis of liver; G40.89 Other seizures; F10.288 Alcohol dependence with other alcohol-induced disorder; I10 Essential (primary) hypertension; E87.6 Hypokalemia; E78.5 Hyperlipidemia, unspecified; K21.9 Gastro-esophageal reflux disease without esophagitis; G57.93 Unspecified mononeuropathy of bilateral lower limbs; I45.9 Conduction disorder, unspecified; R00.0 Tachycardia, unspecified; F17.210 Nicotine dependence, cigarettes, uncomplicated; F32.9 Major depressive disorder, single episode, unspecified; F41.9 Anxiety disorder, unspecified; Y90.0 Blood alcohol level of less than 20 mg/100 ml
CPT/HCPCS: 70450; 71045; 80053; 80307; 81001; 82550; 82552; 83690; 83735; 83880; 84443; 84484; 85007; 85025; 85027; 85610; 85730; 93005; 96361; 96374; 96375; J2060; J2405; J3411; J3475; J7030